=== PATIENT | female | born 1945 | race Caucasian/White ===

== ENCOUNTER → 2019-08-04 12:50 | Outpatient (CLI) | payer MEDICARE, OTHER | END | disposition home or self-care (01) | LOC: D.RAD 12:50 | PROVIDERS: ATTEND Family Medicine | DX: R07.9 Chest pain, unspecified (principal) ==

== ENCOUNTER 2020-07-24 12:56 | Emergency (ER) | payer MEDICARE, OTHER ==
[~2020-07-24] VITALS: Ht 167.6 cm; Wt 89.1 kg
[2020-07-24 13:00] VITALS: Ht 167.6 cm; Wt 89.1 kg
[2020-07-24] MEDS ORDERED: NAPROSYN500 MG PO (14:03)
[2020-07-24 14:15] VITALS: BP 178/89
== END 2020-07-24 14:16 | disposition home or self-care (01) ==
LOC: D.ER 12:56
DX: S89.92XA Unspecified injury of left lower leg, initial encounter (principal); M25.462 Effusion, left knee; E11.9 Type 2 diabetes mellitus without complications; I10 Essential (primary) hypertension; W19.XXXA Unspecified fall, initial encounter; Y93.9 Activity, unspecified; Y92.9 Unspecified place or not applicable

== ENCOUNTER 2020-08-04 18:15 | Emergency (ER) | payer MEDICARE, OTHER ==
[~2020-08-04] VITALS: Ht 167.6 cm; Wt 89.1 kg
[~2020-08-04 18:15] MED LIST: NAPROSYN500 MG PO
[2020-08-04 18:42] VITALS: Ht 167.6 cm; Wt 89.1 kg
[2020-08-04 19:08] LABS: BASOPHILS 0.3 % (0-2); EOSINOPHILS 1.2 % (0-7); HEMATOCRIT 40.2 % (36.0-48.0); HEMOGLOBIN 13.4 g/dL (12-16); IMMATURE GRANULOCYTES 0.3 % (0-5); LYMPHOCYTES 21.4 % (15-50); MCH 29.8 pg (26.0-34.0); MCHC 33.3 g/dL (31.0-37.0); MCV 89.3 fL (80.0-100.0); MEAN PLATELET VOLUME 10.4 fL (7.4-10.4); MONOCYTES 5.7 % (2-11); NEUTROPHIL ABS# 7.98 10x3/uL (1.56-6.13); NEUTROPHILS 71.1 % (40-80); PLATELET COUNT 265 10x3/uL (130-400); RDW 14.4 % (11.5-14.5); WBC 11.2 10x3/uL (4.8-10.8)
[2020-08-04 19:12] LABS: BILIRUBIN NEGATIVE (NEGATIVE); KETONE NEGATIVE (NEGATIVE); NITRITE NEGATIVE (NEGATIVE); UROBILINOGEN NORMAL mg/dL (< 2)
[2020-08-04 19:13] LABS: BACTERIA MODERATE HPF (NONE SEEN); SQUAMOUS EPITHELIAL 0-5 HPF (0-4)
[2020-08-04 19:15] LABS: ANION GAP 13.2 mmol/L (8-16); CALCIUM 9.7 mg/dL (8.5-10.1); CARBON DIOXIDE 28.8 mmol/L (21.0-32.0); CREATININE - SERUM 0.8 mg/dL (0.6-1.3)
[2020-08-04 19:21] LABS: ALBUMIN 4.1 g/dL (3.4-5.0); BILIRUBIN - TOTAL 0.29 mg/dL (0.2-1.3); PROTEIN - SERUM 7.6 g/dL (6.4-8.2)
[2020-08-04] MEDS ORDERED: OMNICEF300 MG PO (20:06)
[2020-08-04 20:20] VITALS: BP 160/78
== END 2020-08-04 20:20 | disposition home or self-care (01) ==
LOC: D.ER 18:15
PROVIDERS: Family Medicine
DX: N39.0 Urinary tract infection, site not specified (principal); E11.9 Type 2 diabetes mellitus without complications; I10 Essential (primary) hypertension